=== PATIENT | female | born 1945 | race Hispanic/Latino ===

== ENCOUNTER 2017-03-12 19:31 | Emergency (ER) | payer OTHER ==
[2017-03-12 19:48] VITALS: BMI 33.1
[2017-03-12 19:51] VITALS: TEMP 97.8
--- NOTE | 2017-03-12 21:11 | ED PDOC ---
Arrival/HPI - General Chief Complaint: Lower Extremity Problem/Injury Time Seen by Provider: 03/12/17 20:05 Historian: Patient - History of Present Illness Narrative History of Present Illness (Text): 03/12/17 21:14 71 year old female presents to the emergency department with worsening bilateral lower extremity swelling for the past 3 weeks. Denies chest pain, shortness of breath, or injury. Time/Duration: > week (x 3 weeks) Symptom Onset: Gradual Symptom Course: Worsening Modifying Factors (Text): None Associated Symptoms (Text): None Past Medical History - Provider Review Nursing Documentation Reviewed: Yes - Infectious Disease Hx of Infectious Diseases: None - Tetanus Immunization Tetanus Immunization: Unknown - Past Medical History Past Medical History: Non-Contributing - Pulmonary Hx Respiratory Disorders: Yes Hx Pneumonia: Yes - Psychiatric Hx Depression: No Hx Emotional Abuse: No Hx Physical Abuse: No Hx Substance Use: No - Past Surgical History Past Surgical History: No Previous - Anesthesia Hx Anesthesia: No - Suicidal Assessment Feels Threatened In Home Enviroment: No Family/Social History - Physician Review Nursing Documentation Reviewed: Yes Family/Social History: Unknown Family HX Smoking Status: Never Smoked Hx Alcohol Use: No Hx Substance Use: No Hx Substance Use Treatment: No Allergies/Home Meds Allergies/Adverse Reactions: Allergies No Known Allergies Allergy (Verified 03/12/15 10:10) Home Medications: Home Meds Medication Instructions Recorded Confirmed No Known Home Med [No Known Home 03/12/15 03/12/17 Med] Review of Systems - Review of Systems Eyes: absent: Vision Changes ENT: absent: Hearing Changes Respiratory: absent: SOB Cardiovascular: Edema (bilateral). absent: Chest Pain, JUÁREZ Gastrointestinal: absent: Abdominal Pain, Vomiting Genitourinary Female: absent: Dysuria, Hematuria, Urine Output Changes, Vaginal Bleeding Musculoskeletal: absent: Back Pain Skin: absent: Rash Neurological: absent: Dizziness Endocrine: absent: Diaphoresis Hemo/Lymphatic: absent: Easy Bleeding Psychiatric: absent: Depression Physical Exam - Physical Exam Narrative Physical Exam (Text): Head: Atraumatic. Normocephalic. Eyes: PERRL. EOMI. Conjunctivae are not pale. ENT: Mucous membranes are moist and intact. Oropharynx is clear and symmetric. Neck: Supple. Full ROM. No JVD. No lymphadenopathy. Cardiovascular: Regular rate. Regular rhythm. No murmurs, rubs, or gallops. Distal pulses are 2+ and symmetric. Pulmonary/Chest: No evidence of respiratory distress. Clear to auscultation bilaterally. No wheezing, rales or rhonchi. Abdominal: Soft and non-distended. There is no tenderness. No rebound, guarding, or rigidity. No organomegaly. Good bowel sounds. Back: No CVA tenderness. Extremities: Bilateral pitting edema. No cyanosis. No clubbing. Full range of motion in all extremities. No calf tenderness. No erythema. Strong distal pulses. Skin: Skin is warm and dry. No petechiae. No purpura. Neurological: Alert, awake, and oriented to person, place, time, and situation. Normal speech. Motor and sensory exam intact. Psychiatric: Good eye contact. Normal interaction, affect, and behavior. Appears anxious. 03/12/17 23:16 Vital Signs Reviewed: Yes Vital Signs Temp Pulse Resp BP Pulse Ox 03/12/17 19:50 97.8 F 98 H 18 147/99 H 97 Temperature: Afebrile Blood Pressure: Normal Pulse: Regular Respiratory Rate: Normal Appearance: Positive for: Well-Appearing, Non-Toxic, Comfortable Pain Distress: None Mental Status: Positive for: Alert and Oriented X 3 Medical Decision Making ED Course and Treatment: Patient DENIES any past medical history. On my history, she denies hematuria. She denies any past cardiac history. Denies chest pain or shortness of breath. On exam, she has bilateral leg edema, nontender, nonerythematous. Pulses intact. No abdominal masses palpated. No abdominal pain reported. Urinates without difficulty. NO headache or chest pain. Ultrasound negative for DVT. As she is otherwise asymptomatic, will discharge with instructions to use compression stockings, follow-up with her stated PMD Dr. Mani Gustafson. She again denies any cardiac history. No significant proteinuria noted. 03/12/17 23:16 - Lab Interpretations Lab Results: 03/12/17 21:25 03/12/17 21:25 Lab Results 03/12/17 21:45: Urine Color Yellow, Urine Appearance Clear, Urine pH 5.5, Ur Specific [place] >= 1.030, Urine Protein Negative, Urine Glucose (UA) Negative, Urine Ketones Negative, Urine Blood Negative, Urine Nitrate Negative, Urine Bilirubin Negative, Urine Urobilinogen 0.2, Ur Leukocyte Esterase Negative 03/12/17 21:25: Sodium 142, Potassium 4.1, Chloride 105, Carbon Dioxide 29, Anion Gap 12, BUN 17, Creatinine 0.7, Est GFR ( Amer) > 60, Est GFR (Non- Af Amer) > 60, Random Glucose 102, Calcium 9.1, Total Bilirubin 1.0, AST 32, ALT 30, Alkaline Phosphatase 100, Lactate Dehydrogenase 618, Total Creatine Kinase 87, Troponin I < 0.01, NT-Pro-B Natriuret Pep 75.7, Total Protein 7.6, Albumin 4.2, Globulin 3.4, Albumin/Globulin Ratio 1.2 03/12/17 21:25: PT 10.3, INR 0.95, APTT 27.7 03/12/17 21:25: WBC 7.2 D, RBC 4.65, Hgb 13.0, Hct 39.6, MCV 85.2, MCH 28.0, MCHC 32.8, RDW 13.5, Plt Count 301, MPV 11.5 H, Gran % 46.3 L, Lymph % (Auto) 45.0 H, [place] % (Auto) 5.8, Eos % (Auto) 2.2, Baso % (Auto) 0.7, Gran # 3.34, Lymph # 3.3, [place] # 0.4, Eos # 0.2, Baso # 0.05 - RAD Interpretation Narrative RAD Interpretations (Text): 03/12/17 23:20 cxr no acute disease Radiology Orders: 03/12/17 20:57 CHEST PORTABLE [RAD] Stat DUPLEX LOWER EXTRM VEIN BILAT [US] Stat Teletypesetter: ED Physician - Scribe Statement The provider has reviewed the documentation as recorded by the Joann Lopes Provider Scribe Attestation: All medical record entries made by the Joann were at my direction and personally dictated by me. I have reviewed the chart and agree that the record accurately reflects my personal performance of the history, physical exam, medical decision making, and the department course for this patient. I have also personally directed, reviewed, and agree with the discharge instructions and disposition. Disposition/Present on Arrival - Present on Arrival Any Indicators Present on Arrival: No History of DVT/PE: No History of Uncontrolled Diabetes: No Urinary Catheter: No History of Decub. Ulcer: No History Surgical Site Infection Following: None - Disposition Have Diagnosis and Disposition been Completed?: Yes Diagnosis: Leg edema Disposition: HOME/ ROUTINE Disposition Time: 23:18 Patient Plan: Discharge Patient Problems: Current Active Problems Problem Status Onset Leg edema Acute Condition: GOOD Discharge Instructions (ExitCare): Leg Edema (ED) Additional Instructions: Use stockings as discussed. IF YOU HAVE ANY REDNESS, ANY PAIN, any abdominal pain or distension, any chest pain or shortness of breath, any fevers, any dizziness, any persistent or worsening of symptoms, get rechecked. Follow-up with Dr. Mani Gustafson in 2-3 days for re-evaluation. Referrals: Mani Gustafson MD [Staff Provider] - Follow up with primary
[2017-03-12 21:30] LABS: ADD MANUAL DIFF? NO
[2017-03-12 21:53] LABS: ALB/GLOB RATIO 1.2 (1.1-1.8); ALKALINE PHOSPHATASE 100 U/L (38-133); ALT/SGPT 30 U/L (7-56); AST/SGOT 32 U/L (15-39); BASO # 0.05 K/mm3 (0.0-2.0); BASO % 0.7 % (0.0-3.0); BLOOD UREA NITROGEN 17 mg/dL (7-21); CALCIUM 9.1 mg/dL (8.4-10.5); CARBON DIOXIDE 29 mmol/L (21-33); CHLORIDE 105 mmol/L (98-107); EOS # 0.2 (0.0-0.7); EOS % 2.2 % (1.5-5.0); GFR AFRICAN-AMERICAN > 60; GLUCOSE,RANDOM 102 mg/dL (70-110); GRAN # 3.34 (1.4-6.5); GRAN % 46.3 % (50.0-68.0); HEMATOCRIT 39.6 % (36.0-48.0); INR 0.95 (0.93-1.08); LYMPH # 3.3 (1.2-3.4); MEAN CELL VOLUME 85.2 fL (80.0-105.0); MEAN CORPUSCULAR HGB CONC 32.8 g/dl (31.0-37.0); MEAN PLATELET VOLUME 11.5 fl (7.0-11.0); MONO # 0.4 (0.1-0.6); MONO % 5.8 % (1.0-6.0); PARTIAL THROMBOPLASTIN TIME 27.7 Seconds (23.7-30.8); PLATELET COUNT 301 10^3/uL (120.0-450.0); POTASSIUM 4.1 mmol/L (3.6-5.0); RED CELL DISTRIBUTION WIDTH 13.5 % (11.5-14.5); SODIUM 142 mmol/L (132-148); TOTAL PROTEIN 7.6 g/dL (5.8-8.3); WHITE BLOOD COUNT 7.2 10^3/ul (4.5-11.0)
[2017-03-12 21:57] LABS: PH,URINE 5.5 (4.7-8.0); URINE BILIRUBIN NEGATIVE (NEGATIVE); URINE BLOOD NEGATIVE (NEGATIVE); URINE GLUCOSE (UA) NEGATIVE (NEGATIVE); URINE KETONE NEGATIVE (NEGATIVE); URINE LEUKOCYTE ESTERASE NEGATIVE Leu/uL (NEGATIVE); URINE PROTEIN NEGATIVE mg/dL (<30 mg/dL); URINE UROBILINOGEN 0.2 E.U./dL (<1 E.U./dL)
[2017-03-12 21:58] LABS: URINE APPEARANCE CLEAR (CLEAR); URINE COLOR YELLOW (YELLOW)
[2017-03-12 22:05] LABS: TROPONIN I < 0.01 ng/mL
[2017-03-12 23:36] VITALS: BP 128/74; PULSE 79; RESP 17; O2SAT 99
--- NOTE | 2017-03-13 12:57 | CARD ---
APPROVED REPORT EKG Measurement Heart [id number] <Conclusion> Normal sinus rhythm Minimal voltage criteria for LVH, may be normal variant Borderline ECG
--- NOTE | 2017-03-13 13:15 | RAD ---
HISTORY: leg edema COMPARISON: 01/17/2013 FINDINGS: LUNGS: No active pulmonary disease. PLEURA: No significant pleural effusion identified, no pneumothorax apparent. CARDIOVASCULAR: Normal. OSSEOUS STRUCTURES: No significant abnormalities. VISUALIZED UPPER ABDOMEN: Normal. OTHER FINDINGS: None. IMPRESSION: No active disease.
--- NOTE | 2017-03-14 13:37 | US ---
HISTORY: Leg pain and swelling. Evaluate for DVT PHYSICIAN(S): Arthur Beltran MD. TECHNIQUE: Duplex sonography and color-flow Doppler with graded compression were used to evaluate the deep venous systems of both lower extremities. FINDINGS: The visualized deep venous systems of both lower extremities are sonographically normal and compressible. Normal wave forms and augmentation are seen. There is no sonographic evidence for deep venous thrombosis in the visualized segments of both lower extremities. IMPRESSION: No sonographic evidence for deep venous thrombosis in the visualized segments of both lower extremities.
== END 2017-03-12 23:36 | disposition home or self-care (01) ==
LOC: ED 19:31
DX: R60.9 Edema, unspecified (principal)